=== PATIENT | male | born 1955 | race American Indian/Alaskan Native ===

== ENCOUNTER 2019-04-03 12:47 | Emergency (ER) | payer OTHER ==
[2019-04-03 13:19] VITALS: BP 117/81
[2019-04-03] MEDS ORDERED: TORADOL IM ONE (14:41)
[2019-04-03] MEDS ORDERED: FLEXERIL PO ONE (14:41)
--- NOTE | 2019-04-03 15:23 | XRay Report ---
THORACIC SPINE, 3 VIEWS INDICATION: back pain. COMPARISON: None. IMPRESSION: Normal alignment. Mild degenerative disc disease with anterior bridging osteophytes is noted in the mid thoracic spine. No acute osseous or soft tissue abnormality. Signer Name: Fede Berger Jr, MD Signed: 04/03/2019 3:18 PM Workstation Name: [id number]
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
== END 2019-04-03 16:16 | disposition home or self-care (01) ==
LOC: ED 12:47
DX: M54.89 Other dorsalgia (principal); M25.511 Pain in right shoulder; M25.512 Pain in left shoulder; R25.2 Cramp and spasm; V89.2XXA Person injured in unspecified motor-vehicle accident, traffic, initial encounter; Y93.89 Activity, other specified; Y92.410 Unspecified street and highway as the place of occurrence of the external cause; Y99.8 Other external cause status
CPT/HCPCS: 72072; 96372; 99283; J1885